=== PATIENT | female | born 1985 | race African-American/Black ===

== ENCOUNTER 2017-09-28 12:30 | Inpatient (IN) | payer OTHER ==
[2017-09-28 13:02] VITALS: BMI 22.6
[2017-09-28 13:38] LABS: HEMOGLOBIN 9.5 GM/dL (10.7-15.3); MCH 30.6 pg (25.7-33.7); MCHC 32.6 g/dl (32.0-36.0); MEAN CELL VOLUME 93.6 fl (80-96); MEAN PLT VOLUME 8.4 fl (7.5-11.1); PLATELET COUNT 321 K/MM3 (134-434); RDW 14.9 % (11.6-15.6); WHITE BLOOD COUNT 14.8 K/mm3 (4.0-10.0)
[2017-09-28] MEDS ORDERED: OXYTOCIN 20 UNITS in 0.9% NS 20 UNIT/1,000 ML INFUS.BAG IV ONE ×2 (13:38→15:55)
[2017-09-28] MEDS ORDERED: PROMETHAZINE HCL 25 MG/1 ML VIAL ONE ×2 (13:38→16:07)
[2017-09-28] MEDS ORDERED: BUTORPHANOL TARTRATE 1 MG/ML VIAL ONE ×3 (13:38→16:07)
[2017-09-28] MEDS ORDERED: LIDOCAINE HCL 1% PRESERVATIVE FREE - 30ML VIAL ONE (13:39)
[2017-09-28] MEDS ORDERED: BUTORPHANOL TARTRATE 1 MG/ML VIAL IVPUSH ONE (13:52)
[2017-09-28] MEDS ORDERED: PROMETHAZINE HCL 25 MG/1 ML VIAL IVPUSH ONE (13:52)
[2017-09-28 13:55] LABS: INR 1.03 (0.82-1.09); PROTHROMBIN TIME (PATIENT) 11.6 SEC (9.98-11.88)
[2017-09-28 13:57] LABS: ACTIVATED PTT 26.7 SECONDS (26.9-34.4); ANION GAP 11 (8-16); BLOOD UREA NITROGEN 7 mg/dL (7-18); CALCIUM 8.2 mg/dL (8.5-10.1); CHLORIDE 102 mmol/L (98-107); CO2 23 mmol/L (21-32); CREATININE 0.6 mg/dL (0.55-1.02); GLUCOSE,RANDOM 182 mg/dL (74-106); POTASSIUM 3.6 mmol/L (3.5-5.1); SODIUM 136 mmol/L (136-145)
[2017-09-28] MEDS ORDERED: DEXTROSE 5%-LACTATED RINGERS 1,000 ML IV SCH (14:00)
[2017-09-28 14:03] LABS: COCAINE, UR NEGATIVE ng/ml (CUTOFF=300); METHADONE, UR NEGATIVE ng/ml (CUTOFF=300); OPIATES, URI NEGATIVE ng/ml (CUTOFF=300); PHENCYCLIDINE,URINE NEGATIVE ng/ml (CUTOFF=25); URINE AMPHETAMINES NEGATIVE ng/ml (CUTOFF=500); URINE BARBITURATES NEGATIVE ng/ml (CUTOFF=200); URINE BENZODIAZEPINES NEGATIVE ng/ml (CUTOFF=200)
[2017-09-28 14:27] LABS: MACROCYTOSIS 1+; OVALOCYTE 1+
--- NOTE | 2017-09-28 14:46 | HP ---
Past Medical History - Primary Care Physician PCP:: Lul Rodriguez - Admission Chief Complaint: 38.6 weeks , labor History of Present Illness: 32 yo f edc by sono 10/06/17 38,6 weeks, in labor cx 5 cm 80 vx -2 mi, fhr cat 1, contraction regular History Source: Patient Limitations to Obtaining History: No Limitations - Past Medical History ...: 7 ...Para: 3 ...Term: 3 ...Induced : 3 ...EDC by Sono: 10/06/17 - Past Surgical History Hx Myomectomy: No Hx Transabdominal Cerclage: No - Smoking History Smoking history: Current every day smoker Have you smoked in the past 12 months: Yes Aproximately how many cigarettes per day: 10 - Alcohol/Substance Use Hx Alcohol Use: No - Social History History of Recent Travel: No Home Medications - Allergies Allergies/Adverse Reactions: Allergies Allergy/AdvReac Type Severity Reaction Status Date / Time Penicillins Allergy Unknown Verified 09/24/17 17:12 - Home Medications Home Medications: Ambulatory Orders Ferrous Sulfate 325 mg PO BID 09/24/17 Review of Systems - Review of Systems Constitutional: reports: No Symptoms Eyes: reports: No Symptoms HENT: reports: No Symptoms Neck: reports: No Symptoms Cardiovascular: reports: No Symptoms Respiratory: reports: No Symptoms Gastrointestinal: reports: No Symptoms Genitourinary: reports: No Symptoms Breasts: reports: No Symptoms Reported Musculoskeletal: reports: No Symptoms Integumentary: reports: No Symptoms Neurological: reports: No Symptoms Endocrine: reports: No Symptoms Hematology/Lymphatic: reports: No Symptoms Psychiatric: reports: No Symptoms Physical Exam - Maternity Vital Signs: Vital Signs Temperature 98.2 F 09/28/17 12:55 Pulse Rate 82 09/28/17 12:55 Respiratory Rate 18 09/28/17 12:55 Blood Pressure 127/76 09/28/17 12:55 O2 Sat by Pulse Oximetry (%) Constitutional: Yes: Well Nourished, No Distress, Calm Eyes: Yes: WNL, Conjunctiva Clear, EOM Intact HENT: Yes: WNL, Atraumatic, Normocephalic Neck: Yes: WNL, Supple, Trachea Midline Cardiovascular: Yes: WNL, Regular Rate and Rhythm Breast(s): Yes: WNL - Abdominal Exam/OB Fundal Height: 40 Number of Fetuses: Single Presentation: Vertex Contractions: Yes Regularity: Regular Intensity: Mod/Strong Monitor Mode: External Heart Rate Location: [facility] Category: I Accelerations: Uniform Decelerations: None - Vaginal Exam/OB Vaginal Bleediing: No Speculum Exam: No Dilatation (cm): 5 Effacement (%): 80 Amniotic Membrane Status: Intact Presentation: Vertex/Position Station: -2 - Physical Exam Musculoskeletal: Yes: WNL Extremities: Yes: WNL Edema: LLE: Trace, RLE: Trace Psychiatric: Yes: Alert - Labs Lab Results: CBC, BMP 09/28/17 13:08 09/28/17 13:08 Hemorrhage Risk Assessment - Risk Factors Medium Risk Factors: Yes: None High Risk Factors: Yes: None Risk Score: 1 Risk Level: Medium Risk Problem List - Problems (1) with 38 completed weeks gestation Code(s): Z3A.38 - 38 WEEKS GESTATION OF (2) Labor established Code(s): QWA7448 - Assessment/Plan admit for vaginal delivery, [facility]
[2017-09-28] MEDS ORDERED: OXYTOCIN 15 UNITS/ LR 250 ML 250 ML IVPB SCH (16:00)
[2017-09-28] MEDS: IBUPROFEN 600 MG TABLET (FP) PO PRN ×2 (19:40→23:24)
[2017-09-28] MEDS: ACETAMINOPHEN 325 MG TABLET (FP) PO PRN ×2 (19:40→23:25)
[2017-09-28] MEDS ORDERED: METHYLERGONOVINE MALEATE 0.2 MG/1 ML AMP IM PRN (19:41)
[2017-09-28] MEDS ORDERED: WITCH HAZEL 50% (TUCKS) 40 PAD/JAR PAD TP PRN (19:41)
[2017-09-28] MEDS ORDERED: BENZOCAINE 20% 57 GM BOTTLE TP PRN (19:42)
[2017-09-28] MEDS ORDERED: BISACODYL 10 MG SUPP.RECT RC PRN (19:42)
[2017-09-28] MEDS ORDERED: SENNOSIDES/DOCUSATE COMBO (SENNA PLUS) TABLET (UD) PO PRN (19:42)
[2017-09-28] MEDS ORDERED: BENZOCAINE 28 GM HEMORRHOIDAL OINTMENT TP PRN (19:42)
--- NOTE | 2017-09-29 00:14 | PN ---
Post Progress Note Post Day: 1 Type of Delivery: Vital Signs: Vital Signs Temperature 99.2 F 09/28/17 22:00 Pulse Rate 75 09/28/17 22:00 Respiratory Rate 18 09/28/17 22:00 Blood Pressure 107/60 09/28/17 22:00 O2 Sat by Pulse Oximetry (%) Breast Exam: Yes: Soft Uterus: Yes: Fundus Firm Abdomen/GI: Yes: Abdomen soft Lochia: Yes: Rubra Lochia, amount: Small Extremities: Yes: Calves non-tender Perineum: Yes: Intact Activity: Ambulating - Labs Labs: CBC WBC 14.8 K/mm3 (4.0-10.0) H 09/28/17 13:08 RBC 3.10 M/mm3 (3.60-5.2) L 09/28/17 13:08 Hgb 9.5 GM/dL (10.7-15.3) L 09/28/17 13:08 Hct 29.0 % (32.4-45.2) L 09/28/17 13:08 MCV 93.6 fl (80-96) 09/28/17 13:08 MCH 30.6 pg (25.7-33.7) 09/28/17 13:08 MCHC 32.6 g/dl (32.0-36.0) 09/28/17 13:08 RDW 14.9 % (11.6-15.6) 09/28/17 13:08 Plt Count 321 K/MM3 (134-434) 09/28/17 13:08 MPV 8.4 fl (7.5-11.1) 09/28/17 13:08 Total Counted 100 09/28/17 13:08 Neutrophils % No Result Required. 09/28/17 13:08 Neutrophils % (Manual) 78.0 % (42.8-82.8) 09/28/17 13:08 Band Neutrophils % 1.0 % 09/28/17 13:08 Lymphocytes % No Result Required. 09/28/17 13:08 Lymphocytes % (Manual) 13.0 % (8-40) 09/28/17 13:08 Monocytes % (Manual) 4 % (3.8-10.2) 09/28/17 13:08 Eosinophils % (Manual) 2.0 % (0-4.5) 09/28/17 13:08 Metamyelocytes 2 % (0-2) 09/28/17 13:08 Macrocytosis 1+ 09/28/17 13:08 Ovalocytes 1+ 09/28/17 13:08 Assessment/Plan oob reg diet check labs
[2017-09-29] MEDS: IBUPROFEN 600 MG TABLET (FP) PO PRN (06:33)
[2017-09-29] MEDS: ACETAMINOPHEN 325 MG TABLET (FP) PO PRN (06:34)
--- NOTE | 2017-09-30 07:11 | PN ---
Post Progress Note - Subjective Subjective: no complains Post Day: 2 Type of Delivery: Vital Signs: Vital Signs Temperature 98.6 F 09/29/17 22:00 Pulse Rate 85 09/29/17 22:00 Respiratory Rate 18 09/29/17 22:00 Blood Pressure 114/79 09/29/17 22:00 O2 Sat by Pulse Oximetry (%) Breast Exam: Yes: Soft. No: Engorged Uterus: Yes: Fundus Firm, Fundus below umbilicus, Non-tender Lochia: Yes: Rubra Lochia, amount: Moderate Extremities: Yes: Calves non-tender Perineum: Yes: Intact Activity: Ambulating - Labs Labs: CBC WBC 14.8 K/mm3 (4.0-10.0) H 09/28/17 13:08 RBC 3.10 M/mm3 (3.60-5.2) L 09/28/17 13:08 Hgb 9.5 GM/dL (10.7-15.3) L 09/28/17 13:08 Hct 29.0 % (32.4-45.2) L 09/28/17 13:08 MCV 93.6 fl (80-96) 09/28/17 13:08 MCH 30.6 pg (25.7-33.7) 09/28/17 13:08 MCHC 32.6 g/dl (32.0-36.0) 09/28/17 13:08 RDW 14.9 % (11.6-15.6) 09/28/17 13:08 Plt Count 321 K/MM3 (134-434) 09/28/17 13:08 MPV 8.4 fl (7.5-11.1) 09/28/17 13:08 Total Counted 100 09/28/17 13:08 Neutrophils % No Result Required. 09/28/17 13:08 Neutrophils % (Manual) 78.0 % (42.8-82.8) 09/28/17 13:08 Band Neutrophils % 1.0 % 09/28/17 13:08 Lymphocytes % No Result Required. 09/28/17 13:08 Lymphocytes % (Manual) 13.0 % (8-40) 09/28/17 13:08 Monocytes % (Manual) 4 % (3.8-10.2) 09/28/17 13:08 Eosinophils % (Manual) 2.0 % (0-4.5) 09/28/17 13:08 Metamyelocytes 2 % (0-2) 09/28/17 13:08 Macrocytosis 1+ 09/28/17 13:08 Ovalocytes 1+ 09/28/17 13:08 Assessment/Plan stable. anemia counselled discharge today
[2017-09-30 08:09] VITALS: BP 113/77; PULSE 87; TEMP 97.5
[2017-09-30 08:44] LABS: HEMATOCRIT 28.1 % (32.4-45.2); HEMOGLOBIN 9.1 GM/dL (10.7-15.3); MCH 30.4 pg (25.7-33.7); MCHC 32.2 g/dl (32.0-36.0); MEAN CELL VOLUME 94.4 fl (80-96); MEAN PLT VOLUME 8.2 fl (7.5-11.1); PLATELET COUNT 341 K/MM3 (134-434); RBC 2.98 M/mm3 (3.60-5.2); RDW 15.2 % (11.6-15.6); WHITE BLOOD COUNT 17.3 K/mm3 (4.0-10.0)
[2017-09-30 10:10] LABS: ANISOCYTOSIS 0; MACROCYTOSIS 1+; PLATELET ESTIMATE NORMAL
== END 2017-09-30 12:50 | disposition home or self-care (01) | DRG 560 ==
LOC: JLDR 12:30 → J3W 18:00
PROVIDERS: ADMIT Obstetrics & Gynecology; ATTEND Obstetrics & Gynecology
PROC: 10E0XZZ Delivery of Products of Conception, External Approach (ICD-10-PCS; principal; 2017-09-28)
DX: O99.334 Smoking (tobacco) complicating childbirth (principal); F17.210 Nicotine dependence, cigarettes, uncomplicated; Z3A.38 38 weeks gestation of pregnancy; Z37.0 Single live birth
CPT/HCPCS: 36415; 59409; 80048; 80307; 85025; 85610; 85730; 86593; 86850; 86900; 86901

== ENCOUNTER 2023-01-11 12:38 | Emergency (ER) | payer OTHER ==
[2023-01-11 12:47] VITALS: BP 123/84; PULSE 76; RESP 18; TEMP 98.2; BMI 22.6
[2023-01-11] MEDS ORDERED: LIDOCAINE VISCOUS 2% ORAL/TOP 15 ML UNIT-DOSE CUP MM ONE (13:20)
[2023-01-11] MEDS ORDERED: MAG HYDROX/AL HYDROX/SIMETH 30 ML UNIT-DOSE CUP PO ONE (13:20)
[2023-01-11] MEDS ORDERED: FAMOTIDINE 10 MG TABLET PO ONE (13:20)
[2023-01-11] MEDS ORDERED: FAMOTIDINE 20 MG TABLET ONE (13:34)
[2023-01-11] MEDS ORDERED: LIDOCAINE VISCOUS 2% ORAL/TOP 15 ML UNIT-DOSE CUP ONE (13:35)
[2023-01-11] MEDS ORDERED: MAG HYDROX/AL HYDROX/SIMETH 30 ML UNIT-DOSE CUP ONE (13:35)
== END 2023-01-11 14:31 | disposition home or self-care (01) ==
LOC: JER 12:38
DX: R07.2 Precordial pain (principal); K21.9 Gastro-esophageal reflux disease without esophagitis; I44.0 Atrioventricular block, first degree
CPT/HCPCS: 93005; 93010; 99283-25

== ENCOUNTER 2023-03-20 18:28 | Observation (INO) | payer OTHER ==
[2023-03-20 18:38] VITALS: RESP 18; BMI 23.1
[2023-03-20 21:07] LABS: BASO % 0.6 % (0-2.0); EOS % 1.6 % (0-4.5); HEMATOCRIT 32.6 % (32.4-45.2); HEMOGLOBIN 11.1 GM/dL (10.7-15.3); MCH 32.7 pg (25.7-33.7); MCHC 34.2 g/dl (32.0-36.0); MEAN CELL VOLUME 95.6 fl (80-96); MEAN PLT VOLUME 7.2 fl (7.5-11.1); MONO % 7.9 % (3.8-10.2); NEUT % 70.9 % (42.8-82.8); PLATELET COUNT 361 10^3/uL (134-434); RBC 3.41 M/mm3 (3.60-5.2); RDW 13.4 % (11.6-15.6); WHITE BLOOD COUNT 11.5 K/mm3 (4.0-10.0)
[2023-03-20 21:14] LABS: INR 1.18 (0.83-1.09); PROTHROMBIN TIME (PATIENT) 13.7 SEC (9.7-13.0)
[2023-03-20 21:17] LABS: ACTIVATED PTT 33.7 SECONDS (25.2-36.5)
[2023-03-20 21:29] LABS: POTASSIUM 3.7 mmol/L (3.5-5.1)
[2023-03-20 21:31] LABS: CALCIUM 8.9 mg/dL (8.5-10.1)
[2023-03-20 21:32] LABS: ALBUMIN 3.9 g/dl (3.4-5.0)
[2023-03-20 21:35] LABS: CREATININE 0.7 mg/dL (0.55-1.3)
[2023-03-20 21:36] LABS: BILIRUBIN,TOTAL 0.2 mg/dL (0.2-1); TOT PROT 7.8 g/dl (6.4-8.2)
[2023-03-20] MEDS ORDERED: LACTATED RINGERS SOLUTION 1000 ML INFUS.BAG IV ONE (21:49)
[2023-03-20] MEDS ORDERED: ACETAMINOPHEN 1000 MG/100 ML BAG IVPB ONE (23:12)
[2023-03-20] MEDS ORDERED: ACETAMINOPHEN INJECTION 100 ML IVPB ONE (23:12)
[2023-03-21 00:37] LABS: BASO % 0.9 % (0-2.0); EOS % 1.8 % (0-4.5); HEMATOCRIT 27.8 % (32.4-45.2); HEMOGLOBIN 9.5 GM/dL (10.7-15.3); LYMPH % 26.1 % (8-40); MCH 32.9 pg (25.7-33.7); MCHC 34.3 g/dl (32.0-36.0); MEAN CELL VOLUME 96.2 fl (80-96); MEAN PLT VOLUME 7.6 fl (7.5-11.1); MONO % 6.2 % (3.8-10.2); PLATELET COUNT 298 10^3/uL (134-434); RBC 2.89 M/mm3 (3.60-5.2); RDW 13.2 % (11.6-15.6); WHITE BLOOD COUNT 10.8 K/mm3 (4.0-10.0)
[2023-03-21] MEDS ORDERED: ACETAMINOPHEN 500 MG TABLET (FP) PO PRN (01:17)
[2023-03-21 01:25] LABS: EPI CELLS 5 /uL (0-25.1); HYALINE CASTS 0 /uL (0-3.1); PH,URINE 6.5 (5.0-8.0); URINE APPEARANCE CLEAR; URINE BACTERIA 23 /uL (0-1359); URINE BILIRUBIN NEGATIVE (NEGATIVE); URINE COLOR YELLOW; URINE GLUCOSE (UA) NEGATIVE (NEGATIVE); URINE KETONE NEGATIVE (NEGATIVE); URINE LEUK ESTERASE NEGATIVE (NEGATIVE); URINE NITRITE NEGATIVE (NEGATIVE); URINE PROTEIN NEGATIVE (NEGATIVE); URINE RBC 952 /uL (0-23.9); URINE UROBILINOGEN 0.2 mg/dL (0.2-1.0); URINE WBC 3 /uL (0-25.8)
[2023-03-21] MEDS ORDERED: SODIUM CHLORIDE 1,000 ML IV SCH (01:45)
[2023-03-21] MEDS ORDERED: METHYLERGONOVINE MALEATE 0.2 MG/1 ML AMP IM ONE (04:07)
[2023-03-21] MEDS ORDERED: OXYTOCIN 20 UNITS in 0.9% NS 1000 ML INFUS.BAG IV ONE (04:08)
[2023-03-21 05:14] LABS: BASO % 0.9 % (0-2.0); EOS % 2.8 % (0-4.5); HEMATOCRIT 27.8 % (32.4-45.2); HEMOGLOBIN 9.7 GM/dL (10.7-15.3); LYMPH % 28.1 % (8-40); MCH 33.9 pg (25.7-33.7); MCHC 34.9 g/dl (32.0-36.0); MEAN CELL VOLUME 97.2 fl (80-96); MEAN PLT VOLUME 7.7 fl (7.5-11.1); NEUT % 61.2 % (42.8-82.8); PLATELET COUNT 307 10^3/uL (134-434); RBC 2.86 M/mm3 (3.60-5.2); RDW 12.9 % (11.6-15.6); WHITE BLOOD COUNT 7.9 K/mm3 (4.0-10.0)
[2023-03-21] MEDS ORDERED: OXYTOCIN 20 UNITS in 0.9% NS 20 UNIT/1,000 ML INFUS.BAG IV SCH (06:15)
[2023-03-21 09:53] LABS: HEMATOCRIT 28.7 % (32.4-45.2); HEMOGLOBIN 9.7 GM/dL (10.7-15.3); MCHC 33.9 g/dl (32.0-36.0); MEAN CELL VOLUME 97.2 fl (80-96); MEAN PLT VOLUME 7.9 fl (7.5-11.1); PLATELET COUNT 301 10^3/uL (134-434); RBC 2.95 M/mm3 (3.60-5.2)
[2023-03-21 10:03] LABS: POTASSIUM 3.7 mmol/L (3.5-5.1)
[2023-03-21 10:06] LABS: CALCIUM 8.3 mg/dL (8.5-10.1)
[2023-03-21 10:07] LABS: ALBUMIN 3.4 g/dl (3.4-5.0); BLOOD UREA NITROGEN 4.1 mg/dL (7-18); MAGNESIUM 1.9 mg/dL (1.8-2.4)
[2023-03-21 10:10] LABS: CREATININE 0.5 mg/dL (0.55-1.3); PHOSPHOROUS 3.1 mg/dL (2.5-4.9)
[2023-03-21 10:11] LABS: BILIRUBIN,TOTAL 0.4 mg/dL (0.2-1); TOT PROT 6.6 g/dl (6.4-8.2)
[2023-03-21 10:23] VITALS: BP 107/75; PULSE 66; TEMP 98.6
== END 2023-03-21 13:50 | disposition home or self-care (01) ==
LOC: JER 18:28 → JERBED 03-21 01:18 → J5S 03-21 02:56
PROVIDERS: ADMIT Obstetrics & Gynecology; ATTEND Obstetrics & Gynecology
PROC: 3E033NZ Introduction of Analgesics, Hypnotics, Sedatives into Peripheral Vein, Percutaneous Approach (ICD-10-PCS; principal; 2023-03-21)
PROC: 3E0337Z Introduction of Electrolytic and Water Balance Substance into Peripheral Vein, Percutaneous Approach (ICD-10-PCS; 2023-03-21)
DX: O03.9 Complete or unspecified spontaneous abortion without complication (principal); D50.0 Iron deficiency anemia secondary to blood loss (chronic); R00.0 Tachycardia, unspecified; O24.419 Gestational diabetes mellitus in pregnancy, unspecified control; F17.200 Nicotine dependence, unspecified, uncomplicated; Z88.0 Allergy status to penicillin
CPT/HCPCS: 36415; 76817-TC; 80053; 81003; 82010; 83735; 84100; 84702; 85025; 85027; 85610; 85730; 86850; 86900; 86901; 87086; 87635; 88305-TC; 96361; 96374; 99285-25; G0378